=== PATIENT | female | born 1990 | race Caucasian/White ===

== ENCOUNTER 2021-04-17 18:07 | Emergency (ER) | payer OTHER ==
[~2021-04-17] VITALS: Ht 157.5 cm; Wt 66.0 kg
[2021-04-17] MEDS ORDERED: DEXAMETHASONE 4 MG TABLET PO ONE (18:45)
[2021-04-17] MEDS ORDERED: oxyCODONE/APAP 5/325 1 TAB TABLET PO ONE (18:45)
[2021-04-17] MEDS ORDERED: ORPHENADRINE CITRATE 60 MG/2 ML VIAL. IM ONE (18:45)
[2021-04-17] MEDS ORDERED: KETOROLAC 30 MG/ML VIAL. IM ONE (18:45)
[2021-04-17] MEDS ORDERED: PRED20TA PO ×2 (18:48→18:49)
[2021-04-17] MEDS ORDERED: ORPH-16 PO ×2 (18:48→18:49)
--- NOTE | 2021-04-17 18:48 | PHYS DOC ---
Past History Past Surgical History: General Adult EDM: Chief Complaint: Neck Pain HPI: HPI: Patient is a [age] year old [sex] who presents with [] Review of Systems: Review of Systems: Allergies: Allergies: Allergies Coded Allergies Type Severity Reaction Last Updated Verified No Known Drug Allergies 04/17/21 No Physical Exam: PE: Constitutional: Well developed, well nourished, no acute distress, non-toxic appearance. [] HENT: Normocephalic, atraumatic, bilateral external ears normal, oropharynx moist, no oral exudates, nose normal. [] Eyes: PERRLA, EOMI, conjunctiva normal, no discharge. [] Neck: Normal range of motion, no tenderness, supple, no stridor. [] Cardiovascular:Heart rate regular rhythm, no murmur [] Lungs & Thorax: Bilateral breath sounds clear to auscultation [] Abdomen: Bowel sounds normal, soft, no tenderness, no masses, no pulsatile masses. [] Skin: Warm, dry, no erythema, no rash. [] Back: No tenderness, no CVA tenderness. [] Extremities: No tenderness, no cyanosis, no clubbing, ROM intact, no edema. [] Neurologic: Alert and oriented X 3, normal motor function, normal sensory function, no focal deficits noted. [] Psychologic: Affect normal, judgement normal, mood normal. [] Current Patient Data: Vital Signs: Vital Signs Date Time Temp Pulse Resp B/P (MAP) Pulse Ox O2 Delivery O2 Flow Rate FiO2 04/17/21 18:10 98.4 96 18 145/76 (99) 98 Room Air EKG: EKG: [] Radiology/Procedures: Radiology/Procedures: [] Heart Score: C/O Chest Pain: N/A Course & Med Decision Making: Course & Med Decision Making Pertinent Labs and Imaging studies reviewed. (See chart for details) [] Dragon Disclaimer: Dragon Disclaimer: This electronic medical record was generated, in whole or in part, using a voice recognition dictation system. Departure Departure: Impression: Primary Impression: Neck pain Disposition: HOME / SELF CARE / HOMELESS Condition: STABLE Referrals: PCP,NO (PCP) Patient Instructions: Cervical Strain and Sprain with [facility] Additional Instructions: ICE area of discomfort 20 min on then leave off next 20 mins. Repeat several times daily as needed for pain. May also substitute for heat. May also use over the counter Ibuprofen for pain or discomfort. Call Dr. Niraj Cortez (pain management) [address] [facility] [place] [address] Scripts Oxycodone Hcl/Acetaminophen (PERCOCET 5-325 MG TABLET ) 1 Each Tablet 0.5-1 TAB PO PRN Q6HRS PRN for PAIN, #10 TAB Prov: SABRINA HAMEED DO 04/17/21 Prednisone (PREDNISONE) 20 Mg Tablet 2 TAB PO DAILY for Back pain, #8 TAB Start this prescription tomorrow, 04/18/21 Prov: SABRINA HAMEED DO 04/17/21 Orphenadrine Citrate (ORPHENADRINE CITRATE) 100 Mg Tablet.er 1 TAB PO BID PRN for MUSCLE PAIN, #14 TAB 0 Refills Prov: SABRINA HAMEED DO 04/17/21 SABRINA HAMEED DO Apr 17, 2021 18:48
[2021-04-17] MEDS ORDERED: OXYC1TAB15 PO (18:49)
[2021-04-17 19:22] VITALS: BP 124/69
== END 2021-04-17 19:32 | disposition home or self-care (01) ==
LOC: ER 18:07
DX: M54.2 Cervicalgia (principal)
CPT/HCPCS: 96372; 99284; J1885; J2360; J8540

== ENCOUNTER 2021-08-04 20:40 | Emergency (ER) | payer OTHER ==
[~2021-08-04] VITALS: Ht 157.5 cm; Wt 66.0 kg
[~2021-08-04 20:40] MED LIST: ORPH-16 PO; OXYC1TAB15 PO; PRED20TA PO
--- NOTE | 2021-08-04 21:22 | PHYS DOC ---
Past History Past Medical History: No Pertinent History Past Surgical History: Smoking: Non-smoker Alcohol Use: None Drug Use: None Adult General HPI HPI Patient is a 31-year-old female with a past medical history significant for renal stones who presents with right flank pain that started couple hours ago that feels similar to her previous episode, 7 out of 10, sharp in nature with some nausea but no vomiting. Denies any other recent traumas, travels, illness, fever, chest pain, shortness of breath, other abdominal pain, dysuria, hematuria, blood in the stool or diarrhea. Denies any history of STIs or concerns of this. Review of Systems Review of Systems Review of systems otherwise unremarkable except noted in HPI Allergies Allergies Allergies Coded Allergies Type Severity Reaction Last Updated Verified No Known Drug Allergies 04/17/21 No Physical Exam Physical Exam Constitutional: Well developed, well nourished, no acute distress, non-toxic appearance. [] HENT: Normocephalic, atraumatic, oropharynx moist, Eyes: conjunctiva normal, no discharge. [] Neck: Normal range of motion, no tenderness, supple, no stridor. [] Cardiovascular:Heart rate regular rhythm, no murmur [] Lungs & Thorax: Bilateral breath sounds clear to auscultation [] Abdomen: soft, no tenderness, no masses, no pulsatile masses. [] Skin: Warm, dry, no erythema, no rash. [] Back: No tenderness, no CVA tenderness. [] Extremities: No tenderness, no cyanosis, no clubbing, ROM intact, no edema. [] Neurologic: Alert and oriented X 3, no focal deficits noted. [] Psychologic: Affect normal, judgement normal, mood normal. [] EKG EKG [] Radiology/Procedures Radiology/Procedures [] Heart Score C/O Chest Pain: No Risk Factors: Risk Factors: DM, Current or recent (<one month) smoker, HTN, HLP, family history of CAD, obesity. Risk Scores: Risk Factors: DM, Current or recent (<one month) smoker, HTN, HLP, family history of CAD, obesity. Course & Med Decision Making Course & Med Decision Making Patient is a 31-year-old who presents with right flank pain and history of renal stones Vital signs nonconcerning. Physical exam noted above. Given pain and nausea medicine. Dragon Disclaimer Dragon Disclaimer This electronic medical record was generated, in whole or in part, using a voice recognition dictation system. Departure Departure: Impression: Primary Impression: Right flank pain Additional Impression: Fatty liver Disposition: HOME / SELF CARE / HOMELESS Condition: STABLE Referrals: NARA CHEN PAC (PCP) Patient Instructions: Diet for Kidney Stones, Kidney Stones Additional Instructions: Thank you for coming into the emergency department tonight and allowing us to take care of you. Please read the attached information carefully go over things we discussed. You can continue Tylenol, ibuprofen and Benadryl as needed. As we discussed, a possibility is that you passed a kidney stone as he did have a little bit of blood in your urine. You also have some fatty infiltration of your liver. Please follow-up as soon as you can with your primary care physician update on ED visit and set up a follow-up. Problem Qualifiers YAKOV MUÑOZ MD Aug 04, 2021 21:21
[2021-08-04 21:28] VITALS: BP 148/89
[2021-08-04] MEDS ORDERED: KETOROLAC 30 MG/ML VIAL. IM ONE (21:30)
[2021-08-04] MEDS ORDERED: ONDANSETRON ODT 4 MG TAB.RAPDIS PO ONE (21:30)
--- NOTE | 2021-08-04 21:49 | RAD ---
PQRS Compliance Statement: One or more of the following individualized dose reduction techniques were utilized for this examinat ion: 1. Automated exposure control 2. Adjustment of the mA and/or kV according to patient size 3. Use of iterative reconstruction technique CT ABDOMEN+PELVIS WO Clinical Indication: Reason: RIGHT FLANK AND LOW BACK PAIN, HX KIDNEY STONES / Spl. Instructions: / History: Comparison: None. Technique: Helical CT imaging of the abdomen and pelvis is performed without IV or oral contrast. Findings: Evaluation of solid organs and bowel is limited without oral and IV contrast, decreasing sensitivity for detection of pathology. Lung bases are clear. Cardiac size normal. There is moderate fatty infiltration of the liver, there is focal fatty sparing along the gallbladder fossa. The gallbladder, spleen, pancreas, adrenal glands, and abdominal aorta are normal. There is n o renal or ureteral calculus or hydronephrosis. The stomach is unremarkable. Tiny fat-containing abdominal hernia. There is no dilated small bowel. T he appendix is normal. There is no colon wall thickening. There is no abdominal adenopathy or free fl uid. The uterus is anteverted. Urinary bladder is decompressed. There is trace pelvic free fluid, likely p hysiologic. No acute bone abnormality. IMPRESSION: 1. No acute abdominal or pelvic abnormality. No obstructive uropathy. 2. Fatty infiltration of the liver. Electronically signed by: Luis Fernando Wade MD (08/04/2021 9:47 PM) [facility]
[2021-08-04 22:30] LABS: CLARITY,URINE CLEAR; COLOR,URINE YELLOW; GLUCOSE,URINE NEG (NEG); NITRITE,URINE NEG (NEG); RBC,URINE OCC /HPF (0-2); UROBILINOGEN,URINE 0.2 mg/dL (0.2 mg/dL)
[2021-08-04] MEDS ORDERED: oxyCODONE/APAP 5/325 1 TAB TABLET PO ONE (22:30)
[2021-08-04 22:31] LABS: BACTERIA,URINE FEW /HPF (0-FEW); SQUAMOUS EPITHELIAL CELL,UR FEW /LPF; WBC,URINE 0 /HPF (0-4)
[2021-08-04] MEDS ORDERED: oxyCODONE/APAP 5/325 1 TAB TABLET ONE (22:31)
== END 2021-08-04 22:44 | disposition home or self-care (01) ==
LOC: ER 20:40
DX: K76.0 Fatty (change of) liver, not elsewhere classified (principal); Z87.442 Personal history of urinary calculi; Z98.890 Other specified postprocedural states
CPT/HCPCS: 74176; 81001; 81025; 96372; 99284; J1885; Q0162